=== PATIENT | male | born 1950 | race Caucasian/White ===

== ENCOUNTER 2017-08-30 12:14 | Emergency (ER) | payer MEDICARE, MEDICAID ==
[2017-08-30] MEDS ORDERED: Sodium Chloride 0.9% 10 ML Syringe FLUSH PRN (12:24)
--- NOTE | 2017-08-30 12:42 | EDM.PDOC ---
ED HPI GENERAL MEDICAL PROBLEM - General Chief Complaint: Neuro Symptoms/Deficits Stated Complaint: CODE GREEN Time Seen by Provider: 08/30/17 12:15 Source of Information: Reports: Patient History Limitations: Reports: Altered Mental Status, Language Barrier, Physical Impairment - History of Present Illness INITIAL COMMENTS - FREE TEXT/NARRATIVE: Pt. presents to ER with complaints of R sided facial droop, L sided weakness, and dysarthria. Last known well was at 0200 this AM. Pt. typically goes for coffee in the morning and did not show up this morning so his friend checked on him. Pt. was found lying on the floor. Pt. relates that he woke at 0700 and was symptomatic at that time. He got out of bed and fell as he was unable to walk or support his weight with his L leg. Pt. states that he has not recently been ill. No complaints of fever, chills, chest pain or shortness of breath. Onset: Today Location: Reports: Head, Generalized - Related Data Allergies Allergy/AdvReac Type Severity Reaction Status Date / Time Unable to Assess Allergy Unverified 08/30/17 12:24 ED ROS GENERAL - Review of Systems Review Of Systems: See Below Constitutional: Reports: No Symptoms HEENT: Reports: No Symptoms Respiratory: Reports: No Symptoms Cardiovascular: Reports: No Symptoms Endocrine: Reports: No Symptoms GI/Abdominal: Reports: No Symptoms : Reports: No Symptoms Musculoskeletal: Reports: No Symptoms, Shoulder Pain Skin: Reports: No Symptoms Neurological: Reports: Paresthesia (L sided), Trouble Speaking, Difficulty Walking, Weakness (Bilateral, more on R than left), Change in Speech Psychiatric: Reports: No Symptoms Hematologic/Lymphatic: Reports: No Symptoms Immunologic: Reports: No Symptoms ED EXAM, GENERAL - Physical Exam Exam: See Below Exam Limited By: No Limitations General Appearance: Alert, WD/WN, No Apparent Distress Eye Exam: Bilateral Eye: EOMI, Normal Fundi, Normal Inspection, PERRL Ears: Normal External Exam, Normal Canal, Hearing Grossly Normal, Normal TMs Ear Exam: Bilateral Ear: Auricle Normal, Canal Normal, TM normal Nose: Normal Inspection, Normal Mucosa, No Blood Throat/Mouth: Normal Inspection, Normal Lips, Normal Teeth, Normal Gums, Normal Oropharynx, Normal Voice, No Airway Compromise Head: Atraumatic, Normocephalic Neck: Normal Inspection, Supple, Non-Tender, Full Range of Motion Respiratory/Chest: No Respiratory Distress, Lungs Clear, Normal Breath Sounds, No Accessory Muscle Use, Chest Non-Tender Cardiovascular: Normal Peripheral Pulses, Regular Rate, Rhythm, No Edema, No Gallop, No JVD, No Murmur, No Rub Peripheral Pulses: 4+: Radial (L), Radial (R) GI/Abdominal: Normal Bowel Sounds, Soft, Non-Tender, No Organomegaly, No Distention, No Abnormal Bruit, No Mass (Male) Exam: Deferred Rectal (Males) Exam: Deferred Back Exam: Normal Inspection, Full Range of Motion, NT Extremities: Normal Inspection, Normal Range of Motion, Non-Tender, Normal Capillary Refill, No Pedal Edema Neurological: Alert, Oriented, Slow to Respond, Abnormal Reflexes, Sensory/ Motor Deficit (L sided), Other (L sided flaccid weakness as well as weakness on the R side as well. Pt. is somewhat confused and it is possible this weakness is due to his inability to follow directions. Pt. relates L sided paresthesia and is unable to feel anyone touching his L upper extremity. Pt. also has signficant L sided facial droop as well.) Psychiatric: Normal Affect, Normal Mood Skin Exam: Warm, Dry, Intact, Normal Color, No Rash Lymphatic: No Adenopathy Course - Orders/Labs/Meds Orders: Active Orders 24 hr Category Date Time Status EKG Documentation Completion [RC] STAT Care 08/30/17 12:24 Ordered Head wo Cont [CT] Stat Exams 08/30/17 12:24 Ordered CBC WITH AUTO DIFF [HEME] Stat Lab 08/30/17 12:24 Ordered COMPREHENSIVE METABOLIC PN,CMP [CHEM] Stat Lab 08/30/17 12:24 Ordered CRP [C-REACTIVE PROTEIN] [CHEM] Stat Lab 08/30/17 12:25 Ordered INR,PT,PROTHROMBIN TIME [COAG] Stat Lab 08/30/17 12:24 Ordered MAGNESIUM [CHEM] Stat Lab 08/30/17 12:25 Ordered PHOSPHORUS [CHEM] Stat Lab 08/30/17 12:25 Ordered TROPONIN I [CHEM] Stat Lab 08/30/17 12:24 Ordered TSH ULTRASENSITIVE [CHEM] Stat Lab 08/30/17 12:24 Ordered Sodium Chloride 0.9% [Saline Flush] Med 08/30/17 12:24 Ordered 10 ml FLUSH ASDIRECTED PRN Peripheral IV Insertion Adult [OM.PC] Routine Oth 08/30/17 12:25 Ordered Medication Orders Sodium Chloride (Saline Flush) 10 ml FLUSH ASDIRECTED PRN PRN Reason: Keep Vein Open Meds: Medications Generic Name Dose Route Start Last Admin Trade Name Freq PRN Reason Stop Dose Admin Sodium Chloride 10 ml 08/30/17 12:24 Saline Flush FLUSH ASDIRECTED PRN Keep Vein Open Departure - Departure Time of Disposition: 13:15 Disposition: DC/Tfer to Acute Hospital 02 Clinical Impression: Cerebrovascular accident (CVA) due to embolism - Discharge Information Forms: ED Department Discharge - Problem List & Annotations (1) CAD (coronary artery disease) SNOMED Code(s): 23398581 Code(s): I25.10 - ATHSCL HEART DISEASE OF [place] CORONARY ARTERY W/O ANG PCTRS Status: Acute Current Visit: Yes (2) Hx of CABG SNOMED Code(s): 098127968, 722336948 Code(s): Z95.1 - PRESENCE OF AORTOCORONARY BYPASS GRAFT Status: Acute Current Visit: Yes (3) Dyslipidemia SNOMED Code(s): 141404036 Code(s): E78.5 - HYPERLIPIDEMIA, UNSPECIFIED Status: Acute Current Visit : Yes (4) Smoker SNOMED Code(s): 12605003 Code(s): F17.200 - NICOTINE DEPENDENCE, UNSPECIFIED, UNCOMPLICATED Status: Acute Current Visit: Yes (5) Cerebrovascular accident (CVA) due to embolism SNOMED Code(s): 307306969 Code(s): I63.9 - CEREBRAL INFARCTION, UNSPECIFIED Status: Acute Current Visit: Yes - Problem List Review Problem List Initiated/Reviewed/Updated: Yes - My Orders Last 24 Hours: My Active Orders 08/30/17 12:24 EKG Documentation Completion [RC] STAT Head wo Cont [CT] Stat CBC WITH AUTO DIFF [HEME] Stat COMPREHENSIVE METABOLIC PN,CMP [CHEM] Stat INR,PT,PROTHROMBIN TIME [COAG] Stat TROPONIN I [CHEM] Stat TSH ULTRASENSITIVE [CHEM] Stat Sodium Chloride 0.9% [Saline Flush] 10 ml FLUSH ASDIRECTED PRN 08/30/17 12:25 CRP [C-REACTIVE PROTEIN] [CHEM] Stat MAGNESIUM [CHEM] Stat PHOSPHORUS [CHEM] Stat Peripheral IV Insertion Adult [OM.PC] Routine - Assessment/Plan Last 24 Hours: My Active Orders 08/30/17 12:24 EKG Documentation Completion [RC] STAT Head wo Cont [CT] Stat CBC WITH AUTO DIFF [HEME] Stat COMPREHENSIVE METABOLIC PN,CMP [CHEM] Stat INR,PT,PROTHROMBIN TIME [COAG] Stat TROPONIN I [CHEM] Stat TSH ULTRASENSITIVE [CHEM] Stat Sodium Chloride 0.9% [Saline Flush] 10 ml FLUSH ASDIRECTED PRN 08/30/17 12:25 CRP [C-REACTIVE PROTEIN] [CHEM] Stat MAGNESIUM [CHEM] Stat PHOSPHORUS [CHEM] Stat Peripheral IV Insertion Adult [OM.PC] Routine Assessment:: CVA Plan: Spoke with Dr. Arteaga at [facility]. Pt. is a candidate for thrombectomy and will be transported emergently to [facility]. He will be transported via [facility] ground ambulance. He is a code level 1.
[2017-08-30] MEDS ORDERED: Aspirin 300 MG Supp ONE (13:08)
[2017-08-30 13:40] LABS: CHLORIDE,CL 103 mmol/L (98-107); SODIUM,NA 139 mmol/L (136-145)
== END 2017-08-30 13:00 | disposition short-term general hospital (02) ==
LOC: VM.ED 12:14
DX: I63.9 Cerebral infarction, unspecified (principal)
CPT/HCPCS: 36415; 70450; 80053; 82550; 83735; 84100; 84443; 84484; 85025; 85610; 86140; 93005; 93010; 99285; 99285-GF; A9270-GY; G0480